=== PATIENT | male | born 2000 | race Caucasian/White ===

== ENCOUNTER 2024-11-18 09:45 | Inpatient (IN) | payer BC, OTHER ==
[~2024-11-18] VITALS: Ht 175.3 cm; Wt 81.6 kg
[2024-11-18] MEDS: VANCOMYCIN IV 1,000 MG in IV DEXTROSE 5% 250 ML IV ONE (02:20)
[2024-11-18] MEDS: PIPERACILLIN SODIUM/TAZOBACTAM 3.375 G in IV DEXTROSE 5% 50 ML IV SCH ×2 (02:20→21:33)
[2024-11-18] MEDS: PIPERACILLIN SODIUM/TAZOBACTAM 3.375 G in IV DEXTROSE 5% 50 ML IV ONE (02:20)
[2024-11-18] MEDS ORDERED: GABA-532 PO (10:12)
[2024-11-18] MEDS ORDERED: NAPR-1196 PO (10:15)
[2024-11-18] MEDS ORDERED: [UNRECOGNIZED DRUG - CODE] MC (10:20)
[2024-11-18 10:34] LABS: PLATELET COUNT (AUTO) 226 K/uL (152-348); RED BLOOD CELL COUNT(AUTO) 4.27 MIL/uL (4.06-5.63); RED CELL DISTRIBUTION WIDTH 13.7 % (12.1-16.2); WHITE BLOOD COUNT (AUTO) 14.4 K/uL (3.6-10.2)
[2024-11-18] MEDS ORDERED: MELA10TA PO (10:39)
[2024-11-18 10:51] LABS: CREATININE 1.0 mg/dL (0.6-1.3); SODIUM SERUM 137 mmol/L (136-145); UREA NITROGEN, BLOOD 10 mg/dL (7-18)
[2024-11-18 10:56] LABS: ETHANOL < 3 MG/DL (0-10)
[2024-11-18 11:00] LABS: LACTIC ACID 2.3 mmol/L (0.4-2.0)
[2024-11-18 11:05] LABS: ASPARTATE AMINOTRANSFERASE 15 U/L (15-37); TOTAL PROTEIN, SERUM 7.9 g/dL (6.4-8.2)
[2024-11-18 11:29] LABS: *BILIRUBIN,URIN NEGATIVE (NEGATIVE); *BLOOD, URINE NEGATIVE (NEGATIVE); *CLARITY,URINE CLEAR (CLEAR); *COLOR,URINE YELLOW (YELLOW); *KETONES,URINE 1+ (NEGATIVE); *PROTEIN,URINE 1+ (NEGATIVE); *UROBILINOGEN,URINE 0.2 E.U./dl (NORMAL); LEUKOCYTE ESTERASE ,URINE NEGATIVE (NEGATIVE); NITRITE, URINE NEGATIVE (NEGATIVE); UGLUCOSE NEGATIVE (NEGATIVE)
[2024-11-18 11:39] LABS: *AMPHETAMINE, URINE NEGATIVE (NEGATIVE); *BARBITURATE, URINE NEGATIVE (NEGATIVE); *BENZODIAZEPINE, URINE POSITIVE (NEGATIVE); *CANNABINOID, URINE NEGATIVE (NEGATIVE); *COCCAINE, URINE NEGATIVE (NEGATIVE); *OPIATE, URINE NEGATIVE (NEGATIVE); *PHENCYCLIDINE SCREEN,URINE NEGATIVE (NEGATIVE); FENTANYL, URINE NEGATIVE (NEGATIVE)
[2024-11-18] MEDS ORDERED: KETOROLAC TROMETHAMINE 15 MG INJ IVP ONE (12:45)
[2024-11-18] MEDS ORDERED: diphenhydrAMINE 50 MG/1 ML VIAL ONE ×2 (12:50→14:11)
[2024-11-18] MEDS ORDERED: HYDROMORPHONE 1 MG/1 ML DISP.SYRIN ONE (12:51)
[2024-11-18] MEDS: HYDROMORPHONE 1 MG/1 ML DISP.SYRIN IM ONE (13:14)
[2024-11-18] MEDS: diphenhydrAMINE 50 MG/1 ML VIAL IM ONE (13:14)
[2024-11-18] MEDS: IV NORMAL SALINE 1000 ML BAG IV ONE (13:50)
[2024-11-18] MEDS ORDERED: VANCOMYCIN IV 200 ML ONE ×2 (13:52→21:09)
[2024-11-18] MEDS ORDERED: PIPERACILLIN/TAZOBACTAM/D5W 50 ML IV ONE (13:54)
[2024-11-18] MEDS ORDERED: PIPERACILLIN SODIUM/TAZO 3.375 GM VIAL ONE (13:55)
[2024-11-18] MEDS ORDERED: HALOPERIDOL LACTATE 5 MG/1 ML VIAL ONE (14:11)
[2024-11-18] MEDS ORDERED: LORAZEPAM 2 MG/1 ML VIAL ONE (14:12)
[2024-11-18] MEDS: diphenhydrAMINE 50 MG/1 ML VIAL IV ONE (14:17)
[2024-11-18] MEDS: HALOPERIDOL LACTATE 5 MG/1 ML VIAL IV ONE (14:17)
[2024-11-18] MEDS: LORAZEPAM 2 MG/1 ML VIAL IV ONE (14:17)
[2024-11-18] MEDS ORDERED: REMEDY ESSENTIAL ZINC PASTE 113 GM TP PRN (14:30)
[2024-11-18] MEDS ORDERED: PIPERACILLIN/TAZOBACTAM/D5W 100 ML IV ONE (21:09)
[2024-11-18] MEDS: IV NS 1000 ML 1,000 ML IV PRN (21:33)
[2024-11-18] MEDS: ENOXAPARIN SODIUM 40 MG/0.4 ML DISP.SYRIN SQ SCH (21:44)
[2024-11-19] MEDS: ACETAMINOPHEN 325 MG TABLET PO PRN (02:40)
[2024-11-19] MEDS: VANCOMYCIN IV 1,000 MG in IV DEXTROSE 5% 250 ML IV ONE (03:00)
[2024-11-19] MEDS ORDERED: LORAZEPAM 2 MG/1 ML VIAL ONE (03:22)
[2024-11-19 06:08] VITALS: BP 108/69; TEMP 97.8; O2SAT 100
[2024-11-19 07:17] LABS: CREATININE 0.8 mg/dL (0.6-1.3); SODIUM SERUM 137.0 mmol/L (136-145); UREA NITROGEN, BLOOD 6.0 mg/dL (7-18)
[2024-11-19 07:22] LABS: PLATELET COUNT (AUTO) 225 K/uL (152-348); RED BLOOD CELL COUNT(AUTO) 4.03 MIL/uL (4.06-5.63); RED CELL DISTRIBUTION WIDTH 14.0 % (12.1-16.2); WHITE BLOOD COUNT (AUTO) 8.6 K/uL (3.6-10.2)
[2024-11-19 08:00] VITALS: BP 127/72; TEMP 97.8; O2SAT 100
[2024-11-19] MEDS: ONDANSETRON 4 MG/2 ML VIAL IV PRN (09:57)
[2024-11-19] MEDS ORDERED: MELATONIN 3 MG TABLET PO PRN (10:30)
[2024-11-19] MEDS: GABAPENTIN 100 MG CAPSULE PO SCH (11:09)
[2024-11-19] MEDS: DIAZEPAM 10 MG/2 ML DISP.SYRIN IV ONE (11:16)
[2024-11-19] MEDS: VANCOMYCIN HCL 1,500 MG in IV DEXTROSE 5% 500 ML IV SCH (12:44)
[2024-11-19] MEDS: NEUTRA PHOS PACKET PO ONE (12:45)
[2024-11-19 14:13] LABS: BAND % (MANUAL) 4 % (0-10); EOSINOPHILS % (MANUAL) 2 % (0-8); LYMPHOCYTES % (MANUAL) 15 % (20-40); MONOCYTES % (MANUAL) 18 % (2-10); NEUTROPHILS % (MANUAL) 61 % (42-75)
[2024-11-19 14:14] LABS: PLATELET ESTIMATE ADEQUATE
[2024-11-19] MEDS: PIPERACILLIN SODIUM/TAZOBACTAM 3.375 G in IV DEXTROSE 5% 50 ML IV SCH (14:24)
[2024-11-19] MEDS: NAPROXEN 250 MG TABLET PO PRN (15:01)
[2024-11-19] MEDS ORDERED: NAPR220C15 PO (15:22)
[2024-11-19] MEDS ORDERED: DIAZ10TA4 PO (15:23)
[2024-11-19] MEDS ORDERED: AMAN100T PO (15:24)
[2024-11-19] MEDS ORDERED: ESOM40CA52 PO (15:24)
[2024-11-19] MEDS ORDERED: AMOX500C2 PO (15:27)
[2024-11-19] MEDS ORDERED: TOPI50TA24 PO (15:28)
[2024-11-19] MEDS ORDERED: IMIP100C4 PO (15:28)
[2024-11-19] MEDS ORDERED: FOLI1TAB94 PO (15:30)
[2024-11-19] MEDS ORDERED: CLON0.1T PO (15:30)
[2024-11-19] MEDS ORDERED: GABA300C PO (15:31)
[2024-11-19] MEDS ORDERED: LEVE500T20 PO (15:33)
[2024-11-19] MEDS ORDERED: MULT-225 PO (15:33)
[2024-11-19] MEDS ORDERED: THIA100T74 PO (15:34)
[2024-11-19 16:00] VITALS: BP 159/96; TEMP 98.4; O2SAT 100
[2024-11-19 17:45] VITALS: O2SAT 98
[2024-11-19] MEDS: AMANTADINE HCL 100 MG CAPSULE PO SCH (18:45)
[2024-11-19] MEDS: IMIPRAMINE HCL 25 MG TABLET PO SCH (19:31)
[2024-11-19 20:16] VITALS: BP 149/86; TEMP 99; O2SAT 99
[2024-11-19] MEDS: TOPIRAMATE 25 MG TABLET PO SCH (20:22)
[2024-11-19] MEDS: DIAZEPAM 5 MG TABLET PO PRN (20:23)
[2024-11-19] MEDS: ZOLPIDEM 5 MG TABLET PO PRN (22:02)
[2024-11-19] MEDS: OLANZAPINE 10 MG VIAL IM PRN (23:25)
[2024-11-20 06:13] VITALS: BP 130/83; TEMP 97.5; O2SAT 100
[2024-11-20] MEDS: PANTOPRAZOLE SODIUM 40 MG TABLET.DR PO SCH (06:13)
[2024-11-20 06:54] LABS: RED BLOOD CELL COUNT(AUTO) 4.39 MIL/uL (4.06-5.63); RED CELL DISTRIBUTION WIDTH 14.1 % (12.1-16.2); WHITE BLOOD COUNT (AUTO) 7.1 K/uL (3.6-10.2)
[2024-11-20 06:58] LABS: CREATININE 0.8 mg/dL (0.6-1.3); SODIUM SERUM 139.0 mmol/L (136-145); UREA NITROGEN, BLOOD 4.0 mg/dL (7-18)
[2024-11-20] MEDS: THIAMINE HCL 100 MG TABLET PO SCH (08:22)
[2024-11-20] MEDS: FOLIC ACID 1 MG TABLET PO SCH (08:22)
[2024-11-20] MEDS: MULTIVITAMINS,THERAPEUTIC TABLET PO SCH (08:22)
[2024-11-20 10:19] LABS: EOSINOPHILS % (MANUAL) 4 % (0-8); LYMPHOCYTES % (MANUAL) 30 % (20-40); MONOCYTES % (MANUAL) 19 % (2-10); NEUTROPHILS % (MANUAL) 47 % (42-75); PLATELET COUNT (AUTO) 211 K/uL (152-348); PLATELET ESTIMATE ADEQUATE
[2024-11-20] MEDS: POTASSIUM CHLORIDE 20 MEQ POWDER PACKET PO ONE (10:19)
[2024-11-20 11:37] VITALS: BP 131/84; TEMP 97.7; O2SAT 100
[2024-11-20] MEDS ORDERED: PIPERACILLIN SODIUM/TAZOBACTAM 3.375 G in IV DEXTROSE 5% 50 ML IV SCH (12:00)
[2024-11-20] MEDS: HYDROCODONE/APAP 10-325 MG TABLET PO PRN (12:10)
[2024-11-20] MEDS: GABAPENTIN 300 MG CAPSULE PO PRN (13:18)
[2024-11-20] MEDS: PIPERACILLIN SODIUM/TAZOBACTAM 3.375 G in IV DEXTROSE 5% 100 ML IV SCH (14:23)
[2024-11-20 16:14] VITALS: BP 146/90; TEMP 97.8; O2SAT 99
[2024-11-20] MEDS: NEUTRA PHOS PACKET PO ONE (17:06)
[2024-11-20 19:17] VITALS: BP 152/98; TEMP 97.9; O2SAT 98
[2024-11-21 04:15] VITALS: BP 150/97; TEMP 97.5; O2SAT 99
[2024-11-21] MEDS: LORAZEPAM 1 MG TABLET PO ONE (05:37)
[2024-11-21 11:32] VITALS: BP 141/85; TEMP 98; O2SAT 99
[2024-11-21] MEDS: NAPROXEN 250 MG TABLET PO PRN (11:37)
[2024-11-21 15:41] VITALS: BP 148/94; TEMP 97.9; O2SAT 98
[2024-11-21] MEDS: CLONIDINE HCL 0.1 MG TABLET PO PRN (20:24)
[2024-11-21 21:28] VITALS: BP 155/93; TEMP 98.1; O2SAT 97
[2024-11-22 06:51] VITALS: BP 147/97; TEMP 97.7; O2SAT 95
[2024-11-22] MEDS: OLANZAPINE 2.5 MG TABLET PO ONE (09:37)
[2024-11-22] MEDS: LORAZEPAM 1 MG TABLET PO ONE (11:08)
[2024-11-22 11:09] VITALS: BP 135/86; TEMP 98; O2SAT 99
[2024-11-22] MEDS: HALOPERIDOL 5 MG TABLET PO ONE (12:04)
[2024-11-22 13:30] VITALS: BP 152/95; TEMP 98.2; O2SAT 97
[2024-11-22] MEDS: LORAZEPAM 2 MG/1 ML VIAL IM ONE (13:30)
[2024-11-22] MEDS: HALOPERIDOL LACTATE 5 MG/1 ML VIAL IM ONE (15:04)
[2024-11-22 15:35] VITALS: BP 129/78; TEMP 98.4; O2SAT 99
[2024-11-22 18:26] LABS: CREATININE 0.9 mg/dL (0.6-1.3); SODIUM SERUM 142.0 mmol/L (136-145); UREA NITROGEN, BLOOD 7.0 mg/dL (7-18)
[2024-11-22 23:07] VITALS: BP 142/93; TEMP 98; O2SAT 99
[2024-11-23 06:44] VITALS: BP 130/81; TEMP 97.7; O2SAT 97
[2024-11-23] MEDS: OLANZAPINE ZYDIS 5 MG TAB.RAPDIS PO SCH (11:53)
[2024-11-23] MEDS: DIAZEPAM 5 MG TABLET PO SCH (11:54)
[2024-11-23] MEDS: ZIPRASIDONE MESYLATE 20 MG VIAL IM ONE (13:45)
[2024-11-23] MEDS: GABAPENTIN 300 MG CAPSULE PO SCH (13:46)
[2024-11-23 15:36] VITALS: BP 133/82; TEMP 97.7; O2SAT 98
[2024-11-23] MEDS ORDERED: OLAN5TAB6 PO (19:30)
[2024-11-23] MEDS ORDERED: SULF1TAB48 PO (19:30)
[2024-11-23] MEDS ORDERED: GABA300C PO (19:33)
[2024-11-23] MEDS: SULFAMETH/TRIMETH 800/160 MG TABLET PO SCH (20:08)
[2024-11-23 20:14] VITALS: BP 133/79; TEMP 97.9; O2SAT 100
[2024-11-23] MEDS: LORAZEPAM 2 MG/1 ML VIAL IV STA (23:13)
[2024-11-23] MEDS: ZIPRASIDONE MESYLATE 20 MG VIAL IM STA (23:13)
[2024-11-24] VITALS (20 sets, daily range): BP systolic 113–162; BP diastolic 53–98; TEMP 97.8–98.8; O2SAT 96–100
[2024-11-24] MEDS ORDERED: PRECEDEX 400 MCG/100 ML BOTTLE 100 ML IV PRN (03:30)
[2024-11-24] MEDS ORDERED: LORAZEPAM 2 MG/1 ML VIAL ONE ×2 (04:06→06:47)
[2024-11-24] MEDS: LORAZEPAM 2 MG/1 ML VIAL IV PRN (04:08)
[2024-11-24] MEDS ORDERED: ACETAMINOPHEN 325 MG TABLET ONE (04:48)
[2024-11-24] MEDS ORDERED: OLANZAPINE 10 MG VIAL IM ONE ×2 (04:48→22:05)
[2024-11-24] MEDS: LORAZEPAM 2 MG/1 ML VIAL IV ONE (06:48)
[2024-11-24] MEDS ORDERED: ZIPRASIDONE MESYLATE 20 MG VIAL IM ONE ×2 (09:11→13:04)
[2024-11-24] MEDS ORDERED: NAPROXEN 500 MG TABLET ONE (09:11)
[2024-11-24] MEDS ORDERED: THIAMINE HCL 100 MG TABLET ONE (09:14)
[2024-11-24] MEDS ORDERED: OLANZAPINE 5 MG TABLET ONE (09:14)
[2024-11-24] MEDS ORDERED: DIAZEPAM 5 MG TABLET ONE ×2 (09:15→17:06)
[2024-11-24] MEDS ORDERED: GABAPENTIN 300 MG CAPSULE ONE ×3 (09:16→17:05)
[2024-11-24] MEDS ORDERED: FOLIC ACID 1 MG TABLET ONE (09:17)
[2024-11-24] MEDS ORDERED: AMANTADINE HCL 100 MG CAPSULE ONE ×3 (09:17→17:05)
[2024-11-24] MEDS: ZIPRASIDONE MESYLATE 20 MG VIAL IM PRN (09:18)
[2024-11-24] MEDS: ZIPRASIDONE 20 MG CAPSULE PO SCH (09:30)
[2024-11-24] MEDS ORDERED: LEVOTHYROXINE SODIUM 100 MCG TABLET ONE (13:04)
[2024-11-24] MEDS: ZIPRASIDONE MESYLATE 20 MG VIAL IM ONE (13:09)
[2024-11-24] MEDS ORDERED: MIDAZOLAM HCL 2 MG/2 ML VIAL ONE (21:49)
[2024-11-24] MEDS: MIDAZOLAM HCL 2 MG/2 ML VIAL IV STA ×3 (21:57→22:13)
[2024-11-24] MEDS ORDERED: MIDAZOLAM HCL 10 MG/2 ML VIAL ONE (22:05)
[2024-11-24] MEDS: OLANZAPINE 10 MG VIAL IM ONE (22:10)
[2024-11-24] MEDS: HALOPERIDOL LACTATE 5 MG/1 ML VIAL IV STA (22:15)
[2024-11-25] VITALS (24 sets, daily range): BP systolic 111–145; BP diastolic 50–101; TEMP 97.9–98.4; O2SAT 95–100
[2024-11-25] MEDS ORDERED: ZIPRASIDONE MESYLATE 20 MG VIAL IM ONE ×2 (01:06→14:16)
[2024-11-25] MEDS ORDERED: MIDAZOLAM HCL 2 MG/2 ML VIAL ONE (04:18)
[2024-11-25] MEDS: MIDAZOLAM HCL 2 MG/2 ML VIAL IV STA (04:34)
[2024-11-25] MEDS ORDERED: ZOLPIDEM 5 MG TABLET ONE ×2 (05:28→22:37)
[2024-11-25] MEDS ORDERED: CLONIDINE HCL 0.1 MG TABLET ONE (06:10)
[2024-11-25] MEDS ORDERED: diphenhydrAMINE 50 MG/1 ML VIAL ONE (07:46)
[2024-11-25] MEDS ORDERED: HALOPERIDOL LACTATE 5 MG/1 ML VIAL ONE (07:46)
[2024-11-25] MEDS ORDERED: LORAZEPAM 2 MG/1 ML VIAL ONE ×2 (07:46→20:49)
[2024-11-25] MEDS: HALOPERIDOL LACTATE 5 MG/1 ML VIAL IM ONE (08:01)
[2024-11-25] MEDS: diphenhydrAMINE 50 MG/1 ML VIAL IV STA (08:01)
[2024-11-25] MEDS: LORAZEPAM 2 MG/1 ML VIAL IM STA (08:01)
[2024-11-25] MEDS ORDERED: ENOXAPARIN SODIUM 40 MG/0.4 ML DISP.SYRIN SQ ONE (08:06)
[2024-11-25] MEDS ORDERED: GABAPENTIN 300 MG CAPSULE ONE ×4 (08:07→20:05)
[2024-11-25] MEDS ORDERED: FOLIC ACID 1 MG TABLET ONE (08:07)
[2024-11-25] MEDS ORDERED: AMANTADINE HCL 100 MG CAPSULE ONE ×2 (08:08→11:44)
[2024-11-25] MEDS ORDERED: DIAZEPAM 5 MG TABLET ONE ×3 (08:08→16:47)
[2024-11-25] MEDS ORDERED: THIAMINE HCL 100 MG TABLET ONE (08:08)
[2024-11-25] MEDS ORDERED: SULFAMETH/TRIMETH 800/160 MG TABLET ONE ×2 (08:08→20:05)
[2024-11-25] MEDS ORDERED: PANTOPRAZOLE SODIUM 40 MG TABLET.DR PO ONE (08:27)
[2024-11-25] MEDS ORDERED: NAPROXEN 500 MG TABLET ONE (08:35)
[2024-11-25] MEDS ORDERED: ACETAMINOPHEN 325 MG TABLET ONE (11:39)
[2024-11-25] MEDS ORDERED: METHOCARBAMOL 500 MG TABLET PO PRN (12:15)
[2024-11-25] MEDS ORDERED: ACETAMINOPHEN/CODEINE 300-30 MG TABLET ONE ×3 (12:15→23:34)
[2024-11-25] MEDS: GABAPENTIN 300 MG CAPSULE PO SCH (12:17)
[2024-11-25] MEDS: ACETAMINOPHEN/CODEINE 300-30 MG TABLET PO PRN (12:17)
[2024-11-25] MEDS: METHOCARBAMOL 500 MG TABLET PO SCH (12:17)
[2024-11-25] MEDS: DIAZEPAM 5 MG TABLET PO SCH (12:18)
[2024-11-25] MEDS ORDERED: METHOCARBAMOL 500 MG TABLET ONE (16:47)
[2024-11-25] MEDS: TOPIRAMATE 100 MG TABLET PO SCH (20:09)
[2024-11-25] MEDS: LORAZEPAM 2 MG/1 ML VIAL IV PRN (20:50)
[2024-11-25 21:37] LABS: HIV-1/2 ANTIBODY NON REACTIVE (NONREACTIVE)
[2024-11-25] MEDS: ZOLPIDEM 5 MG TABLET PO PRN (22:42)
[2024-11-25] MEDS: ZIPRASIDONE MESYLATE 20 MG VIAL IM ONE (22:45)
[2024-11-26] VITALS (13 sets, daily range): BP systolic 118–159; BP diastolic 67–99; TEMP 98.4–98.5; O2SAT 98–100
[2024-11-26] MEDS ORDERED: METHOCARBAMOL 500 MG TABLET ONE ×3 (00:32→11:10)
[2024-11-26] MEDS ORDERED: ZIPRASIDONE MESYLATE 20 MG VIAL IM ONE ×2 (02:41→15:50)
[2024-11-26] MEDS ORDERED: LORAZEPAM 2 MG/1 ML VIAL ONE ×2 (03:39→10:08)
[2024-11-26] MEDS ORDERED: ACETAMINOPHEN/CODEINE 300-30 MG TABLET ONE (06:24)
[2024-11-26] MEDS ORDERED: PANTOPRAZOLE SODIUM 40 MG TABLET.DR PO ONE (06:43)
[2024-11-26] MEDS ORDERED: ACETAMINOPHEN/CODEINE 300-30 MG TABLET PO PRN (08:15)
[2024-11-26] MEDS ORDERED: GABAPENTIN 300 MG CAPSULE ONE ×2 (08:15→13:00)
[2024-11-26] MEDS ORDERED: THIAMINE HCL 100 MG TABLET ONE (08:16)
[2024-11-26] MEDS ORDERED: FOLIC ACID 1 MG TABLET ONE (08:16)
[2024-11-26] MEDS ORDERED: SULFAMETH/TRIMETH 800/160 MG TABLET ONE (08:16)
[2024-11-26] MEDS ORDERED: AMANTADINE HCL 100 MG CAPSULE ONE ×2 (08:16→12:54)
[2024-11-26] MEDS ORDERED: DIAZEPAM 5 MG TABLET ONE ×4 (08:16→12:57)
[2024-11-26 15:07] LABS: METHYLMALONIC ACID 147.0 nmol/L (0-378)
[2024-11-26] MEDS ORDERED: ZIPRASIDONE 20 MG CAPSULE PO SCH (21:00)
== END 2024-11-26 16:30 | disposition other institution (70) | DRG 871 ==
LOC: ER 09:45 → UNDOADMIN 19:49 → TELE3 19:49 → MEDSURG3 19:56 → OBSER 11-24 03:19 → ICU IN 11-24 03:19 → MEDSURG3 11-24 03:19
PROVIDERS: ADMIT Nurse Practitioner Acute Care; ATTEND Nurse Practitioner Acute Care
PROC: 05HC33Z Insertion of Infusion Device into Left Basilic Vein, Percutaneous Approach (ICD-10-PCS; principal; 2024-11-19)
PROC: 05HB33Z Insertion of Infusion Device into Right Basilic Vein, Percutaneous Approach (ICD-10-PCS; 2024-11-25)
DX: A41.9 Sepsis, unspecified organism (principal); G93.41 Metabolic encephalopathy; L03.115 Cellulitis of right lower limb; L03.116 Cellulitis of left lower limb; E87.20 Acidosis, unspecified; F19.20 Other psychoactive substance dependence, uncomplicated; F31.9 Bipolar disorder, unspecified; Z78.1 Physical restraint status; F41.9 Anxiety disorder, unspecified; M41.9 Scoliosis, unspecified; Z79.899 Other long term (current) drug therapy; R65.20 Severe sepsis without septic shock
CPT/HCPCS: 36415; 70030-TC; 71045; 83605; 83735; 83921; 84100; 84443; 84484; 85025; 85730; 86704; 87040; 87340; 87806; A4663; C1758; G0378; G0480; J1171; J1200; J1630; J1650; J2060; J2250; J2358; J2405; J2543; J3360; J3373; J3374; J3486; J7040; J7050; J7060; Q0163